=== PATIENT | female | born 1990 | race Caucasian/White ===

== ENCOUNTER 2017-01-22 11:26 | Emergency (ER) | payer SELFPAY ==
[~2017-01-22] VITALS: Ht 149.9 cm; Wt 102.1 kg
[2017-01-22] MEDS ORDERED: MUPI15CR TP (12:52)
[2017-01-22] MEDS ORDERED: SULF1TAB24 PO (12:52)
[2017-01-22] MEDS: LIDOCAINE 2%/EPI 1:100,000 20 ML VIAL. IJ ONE (12:53)
--- NOTE | 2017-01-22 13:04 | PHYS DOC ---
General Chief Complaint: INSECT BITE Stated Complaint: INSECT BITE Time Seen by MD: 12:39 Source: patient Exam Limitations: no limitations Problems: History of Present Illness Initial Comments Patient is a 26-year-old female who comes to the ED complaining of possible insect bite. Patient states that one week ago she noticed a small fall at her right groin consistent with an ingrown hair. Since that time the skin lesion has grown larger turned red and become tender. Patient denies history of MRSA no fever chills sweats or bodyaches no immunocompromised status. She says last night she tried to pop this skin lesion but was successful only in creating a bruised scabbed abrasion at the apex of the lesion. Ocxm-nmx-ikyxxbw medications haven' t been helping and as she was unable to get anything out of the presumed abscess last night she has calm or further evaluation. Tetanus is up-to-date. Patient is afebrile no tachycardia vital signs stable Onset: last week Severity: moderate Pain/Injury Location: right hip Method of Injury: unknown Modifying Factors: worse with jarring, worse with movement, improves with rest Allergies: Coded Allergies: Penicillins (Verified Allergy, Severe, Anaphylaxis, 01/22/17) Past Medical History Medical History: no pertinent history Surgical History: noncontributory Social History Smoker: cigarettes Alcohol: none Drugs: none Review of Systems Constitutional: denies chills, denies fever, denies malaise Respiratory: denies cough, denies shortness of breath Cardiovascular: denies chest pain, denies palpitations Gastrointestinal: denies abdominal pain, denies diarrhea, denies nausea, denies vomiting Musculoskeletal: denies back pain, denies joint swelling, denies neck pain Skin: see HPI Physical Exam General Appearance: no apparent distress, obese HEENT: normal ENT inspection Neck: non-tender, supple Cardiovascular/Respiratory: normal peripheral pulses, no respiratory distress Back: no CVA tenderness, no vertebral tenderness Neurologic/Tendon: normal sensation, normal motor functions, normal tendon functions, responds to pain, no evidence tendon injury Psychiatric: alert, oriented x 3 Skin: warm/dry (the right groin there is a 4 x 5 cm tender red fluctuant abscess with a scabbed lesion at the apex with a half centimeter halo of ecchymosis. The lesion is tender and warm consistent with abscess. There is no drainage from the lesion at this point as it is scabbed.) Orders, Labs, Meds I advised the patient would need to move her from fast track to a regular exam room so we can't perform an I&D of the lesion. As we were talking I received a physician phone call from a physician at to discuss his acceptance of a different patient for transfer. 1302: Before I can get back to even finished a conversation with the patient much less get her moved to a regular exam room ED staff notifies me pt anxious, has to go to work. Refusing I/D, requesting meds and discharge. Patient was signed out by the RN see departure. Departure Time of Disposition: 13:03 Disposition: 01 HOME, SELF-CARE Diagnosis: right leg abscess Condition: GOOD Patient Instructions: Abscess, Care After Additional Instructions: Activity as tolerated. Warm compresses to affected area 4-6 times daily. Yczm-xro-ktwwthy Tylenol or ibuprofen as needed. Prescription: Bactrim DS, Bactroban ointment Follow-up with your doctor in 3-5 days for a recheck. Return to the ED with new or changing symptoms. MARTA ZUNIGA DO Jan 22, 2017 13:04
[2017-01-22 13:10] VITALS: BP 139/73
== END 2017-01-22 13:12 | disposition home or self-care (01) ==
LOC: ER 11:26
DX: L02.415 Cutaneous abscess of right lower limb (principal); F17.210 Nicotine dependence, cigarettes, uncomplicated; Z88.0 Allergy status to penicillin
CPT/HCPCS: 99283

== ENCOUNTER 2018-06-03 09:02 | Emergency (ER) | payer SELFPAY ==
[~2018-06-03] VITALS: Ht 149.9 cm; Wt 111.5 kg
[~2018-06-03 09:02] MED LIST: MUPI15CR TP; SULF1TAB24 PO
[2018-06-03 09:28] VITALS: BP 134/84
[2018-06-03] MEDS ORDERED: KETOROLAC 60 MG/2 ML VIAL. IM ONE (09:45)
--- NOTE | 2018-06-03 10:08 | PHYS DOC ---
Past History Past Medical History: No Pertinent History Past Surgical History: Smoking: Cigarettes Alcohol Use: Occasionally Drug Use: None Adult General Chief Complaint Chief Complaint: BACK PAIN OR INJURY HPI HPI Patient is a 28 year old female who presents with back pain for 1 week. Patient state she has had a constant low back pain for 1 week and for the last couple days has radiation of pain to right posterior thigh and leg as a constant pain that getting worse with movement and activity. Patient denies focal neuro deficit, fever and chills, urinary and bowel incontinence, vaginal bleeding or discharge, urinary symptoms, abdominal pain. Patient states she has had history of chronic back pain but never had radiation of pain to the back of her thigh. Patient rated her pain 9/10 and states she took adxf-oss-kifvzeo pain medication without improvement of her pain. Review of Systems Review of Systems Constitutional: Denies fever or chills [] Eyes: Denies change in visual acuity, redness, or eye pain [] HENT: Denies nasal congestion or sore throat [] Respiratory: Denies cough or shortness of breath [] Cardiovascular: No additional information not addressed in HPI [] GI: Denies abdominal pain, nausea, vomiting, bloody stools or diarrhea [] : Denies dysuria or hematuria [] Musculoskeletal: Reports back pain and extremity pain Integument: Denies rash or skin lesions [] Neurologic: Denies headache, focal weakness or sensory changes [] Endocrine: Denies polyuria or polydipsia [] All other systems were reviewed and found to be within normal limits, except as documented in this note. Current Medications Current Medications Current Medications Medications (Trade) Dose Ordered Sig/[facility] Start Time Stop Time Status Last Admin Dose Admin Ketorolac Tromethamine (Toradol Im) 60 mg 1X ONCE 06/03/18 09:45 06/03/18 09:46 DC 06/03/18 09:51 60 MG Allergies Allergies Allergies Coded Allergies Type Severity Reaction Last Updated Verified Penicillins Allergy Severe Anaphylaxis 01/22/17 Yes iodine Allergy Unknown hives 06/03/18 Yes Physical Exam Physical Exam Constitutional: Well developed, well nourished, mild distress, non-toxic appearance, morbidly obese. [] HENT: Normocephalic, atraumatic. Eyes: PERRLA, EOMI, conjunctiva normal, no discharge. [] Neck: Normal range of motion, no tenderness, supple, no stridor. [] Cardiovascular:Heart rate regular rhythm, no murmur [] Lungs & Thorax: Bilateral breath sounds clear to auscultation [] Abdomen: Bowel sounds normal, soft, no tenderness, no masses, no pulsatile masses. [] Skin: Warm, dry, no erythema, no rash. [] Back: No midline tenderness, no CVA tenderness, right paraspinal muscle spasm. [ ] Extremities: No tenderness, no cyanosis, no clubbing, ROM intact, no edema. [] Neurologic: Alert and oriented X 3, normal motor function, normal sensory function, no focal deficits noted. [] Psychologic: Affect normal, judgement normal, mood normal. [] Current Patient Data Vital Signs Vital Signs Date Time Temp Pulse Resp B/P (MAP) Pulse Ox O2 Delivery O2 Flow Rate FiO2 06/03/18 09:28 97.5 90 22 97 Room Air EKG EKG [] Radiology/Procedures Radiology/Procedures [] Course & Med Decision Making Course & Med Decision Making Pertinent Labs reviewed. (See chart for details) discharge: I've spoken with the patient and/or caregivers. I've explained the patient's condition, diagnosis and treatment plan based on information available to me at this time. I've answered the patient's and/or caregivers questions and addressed any concerns. The patient and/or caregivers have a good understanding the patient's diagnosis, condition and treatment plan as can be expected at this point. Vital signs have been stabilized. The patient's condition is stable for discharge from the emergency department. The patient will pursue further outpatient evaluation with her primary care provider or other designated consulting physician as outlined in the discharge instructions. Patient and/or caregivers are agreeable to this plan of care and follow-up instructions have been explained in detail. The patient and/or caregivers have received these instructions in written format and expressed understanding of these discharge instructions. The patient and her caregivers are aware that if any significant change in condition or worsening of symptoms should prompt him to immediately return to this of the closest emergency department. If an emergent department is not readily available I would encourage him to call 911. Mauro Disclaimer [employer] Disclaimer This electronic medical record was generated, in whole or in part, using a voice recognition dictation system. Departure Departure: Impression: Primary Impression: Sciatic leg pain Additional Impressions: Tobacco abuse Tobacco abuse counseling Morbid obesity with BMI of 45.0-49.9, adult Disposition: 01 HOME, SELF-CARE (at 1026) Condition: IMPROVED Referrals: PCPMALLORY (PCP) Patient Instructions: Sciatica, Smoking Cessation, Tips For Success Additional Instructions: Apply ice on your back Follow-up with your primary care physician in 3-5 days Return to ER if not getting better Scripts Prednisone (PREDNISONE) 50 Mg Tablet 1 TAB PO DAILY for inflammation, #5 TAB Prov: JAMES ANDERSON MD 06/03/18 Naproxen (NAPROSYN) 500 Mg Tablet 500 MG PO BID for pain, #20 TAB Prov: JAMES ANDERSON MD 06/03/18 Cyclobenzaprine Hcl (CYCLOBENZAPRINE HCL) 10 Mg Tablet 1 TAB PO TID for pain, #30 TAB Prov: JAMES ANDERSON MD 06/03/18 Problem Qualifiers JAMES ANDERSON MD Jun 03, 2018 10:08
[2018-06-03 10:14] LABS: BILIRUBIN,URINE NEG (NEG); CLARITY,URINE CLOUDY; COLOR,URINE YELLOW; GLUCOSE,URINE NEG (NEG); NITRITE,URINE NEG (NEG); UROBILINOGEN,URINE 0.2 mg/dL (0.2 mg/dL)
[2018-06-03 10:15] LABS: BACTERIA,URINE FEW /HPF (0-FEW); RBC,URINE OCC /HPF (0-2); SQUAMOUS EPITHELIAL CELL,UR FEW /LPF; WBC,URINE OCC /HPF (0-4)
[2018-06-03] MEDS ORDERED: METH4TAB2 PO (10:28)
[2018-06-03] MEDS ORDERED: CYCL-331 PO (10:28)
[2018-06-03] MEDS ORDERED: NAPR-683 PO (10:28)
[2018-06-03] MEDS ORDERED: PRED50TA PO (10:33)
== END 2018-06-03 10:35 | disposition home or self-care (01) ==
LOC: ER 09:02
DX: M54.41 Lumbago with sciatica, right side (principal); G89.29 Other chronic pain; F17.210 Nicotine dependence, cigarettes, uncomplicated; E66.01 Morbid (severe) obesity due to excess calories; Z68.42 Body mass index [BMI] 45.0-49.9, adult; Z98.890 Other specified postprocedural states; Z71.6 Tobacco abuse counseling; Z88.0 Allergy status to penicillin; Z91.041 Radiographic dye allergy status
CPT/HCPCS: 81001; 87086; 96372; 99283; J1885

== ENCOUNTER 2020-08-03 13:14 | Emergency (ER) | payer SELFPAY ==
[~2020-08-03] VITALS: Ht 149.9 cm; Wt 111.0 kg
[~2020-08-03 13:14] MED LIST changes: +CYCL-331 PO; +METH4TAB2 PO; +NAPR-683 PO; +PRED50TA PO
[2020-08-03 13:44] VITALS: BP 119/91
--- NOTE | 2020-08-03 15:14 | PHYS DOC ---
Past History Past Medical History: No Pertinent History Past Surgical History: Smoking: Cigarettes Alcohol Use: Rarely Drug Use: None General Adult EDM: Chief Complaint: BACK INJURY HPI: HPI: History gained from patient. Patient is a 30-year-old female who presents with chief complaint of left lower back pain status post mechanical fall 2 weeks prior to arrival. States she was about to walk down 5 stairs when she slipped o n some clothes on the landing. States she fell down 2-3 steps on her left lower back. She was able to ambulate and has been relatively comfortable over the past 2 weeks but she states the pain became more severe earlier today. She has tried naproxen at home with minimal relief. Denies hitting her head or LOC. Denies any midline pain. Denies chest pain or shortness of breath. Does not take blood thinners. States pain is aching and constant. States it is nonradiating. Patient denies any urinary retention, stool incontinence, saddle anesthesia, history of IV drug use, or history of cancer. Review of Systems: Review of Systems: Constitutional: Denies fever or chills Eyes: Denies change in visual acuity HENT: Denies nasal congestion or sore throat Respiratory: Denies cough or shortness of breath Cardiovascular: Denies chest pain or edema GI: Denies abdominal pain, nausea, vomiting, bloody stools or diarrhea : Denies dysuria Musculoskeletal: Positive for fall and back pain Integument: Denies rash Neurologic: Denies headache, focal weakness or sensory changes Endocrine: Denies polyuria or polydipsia Lymphatic: Denies swollen glands Psychiatric: Denies depression or anxiety Allergies: Allergies: Allergies Coded Allergies Type Severity Reaction Last Updated Verified Penicillins Allergy Severe Anaphylaxis 01/22/17 Yes iodine Allergy Unknown hives 06/03/18 Yes Physical Exam: PE: C physical Exam Trauma: Primary Survey: Airway: Intact. Speaks in normal voice and phonation. Breathing: Breath sounds are clear and equal bilaterally. Circulation: Regular rhythm, 2+ and symmetric radial, DP and PT pulses. Disability: GCS on arrival was 15. Pupils 3 mm, ERRL Exposure: Complete exposure obtained and described in detail below. Secondary Survey: General: Awake, alert, appropriate, and in no acute distress HENT: Atraumatic. TMs clear bilaterally, no hemotympanum. No periorbital tenderness or deformity. No obvious craniofacial trauma. Midface is stable. No apparent dental or tongue/oropharyngeal injury. No septal hematoma. Neck: C-spine: no midline tenderness. Without step-off, deformity, abrasion, ecchymosis, or other signs of trauma. Paraspinal musculature with no tenderness and/or hypertonicity. Eyes: Pupils 3 mm ERRL, EOMI grossly, no evidence of ocular trauma, conjunctivae normal Respiratory: CTAB without wheezing, rhonchi, or rales. No distress. Chest wall with no tenderness to palpation. No crepitus, ecchymosis, or flail segment present. Cardiovascular: Regular rhythm without murmurs noted. 2+ and symmetric radial, DP and PT pulses. GI: Soft, non-tender, non-distended Musculoskeletal: T-spine: no midline tenderness. Without step-off, deformity, abrasion, ecchymosis, or other signs of trauma. Paraspinal musculature with no tenderness and/or hypertonicity. L-spine: no midline tenderness. Without step-off, deformity, abrasion, ecchymosis, or other signs of trauma. Paraspinal musculature with no tenderness and/or hypertonicity. RUE: Active ROM, no obvious deformity, no gross weakness or sensory deficits, warm & well-perfused LUE: Active ROM, no obvious deformity, no gross weakness or sensory deficits, warm & well-perfused RLE: Active ROM, no obvious deformity, no gross weakness or sensory deficits, warm & well-perfused LLE: Active ROM, no obvious deformity, no gross weakness or sensory deficits, warm & well-perfused Integument: Without abrasions, contusions, or lacerations. Neurologic: GCS on arrival as noted above. No obvious focal motor or sensory deficits on examination. Gait not assessed due to acuity of trauma assessment. Current Patient Data: Vital Signs: Vital Signs Date Time Temp Pulse Resp B/P (MAP) Pulse Ox O2 Delivery O2 Flow Rate FiO2 08/03/20 13:44 98.3 86 16 119/91 (100) 95 Room Air EKG: EKG: [] Radiology/Procedures: Radiology/Procedures: [address] [address] IMAGING REPORT Signed PATIENT: CLAUDIO MENDIETA LACCOUNT: [id number] : 1990 LOCATION: ER AGE: 30 SEX: F EXAM STATUS: REG ER ORD. PHYSICIAN: JESSE WOLF DO REASON: Left lower BP s/p fall PROCEDURE: CT LUMBAR SPINE WO CONTRAST Exam: CT the lumbar spine without contrast INDICATION: Left lower back pain status post fall TECHNIQUE: Sequential axial images through the lumbar spine obtained without IV contrast. Sagittal and coronal reformatted images were reconstructed from the axial data and reviewed. Comparisons: None FINDINGS: Vertebral body heights and alignment are well-maintained. Fracture to the lumbar spine is not identified. No significant spondylotic change lumbar spine. Gallstone noted within the gallbladder. Otherwise, visualized soft tissues are unremarkable. IMPRESSION: 1. Negative CT lumbar spine for acute traumatic injury. 2. Cholelithiasis. Exposure: One or more of the following in the visualized dose reduction techniques were utilized for this examination: 1. Automated exposure control 2. Adjustment of the MA and/or KV according to patient size 3. Use of iterative of reconstructive technique Electronically signed by: Yuli Shields MD (08/03/2020 3:53 PM) [facility] DICTATED AND SIGNED BY: YULI SHIELDS MD DATE: 08/03/20 1547 CC: PCP,NO; JESSE WOLF DO ~MTH0 0 [] Heart Score: Risk Factors: Risk Factors: DM, Current or recent (<one month) smoker, HTN, HLP, family history of CAD, obesity. Risk Scores: Score 0 - 3: 2.5% MACE over next 6 weeks - Discharge Home Score 4 - 6: 20.3% MACE over next 6 weeks - Admit for Clinical Observation Score 7 - 10: 72.7% MACE over next 6 weeks - Early Invasive Strategies Course & Med Decision Making: Course & Med Decision Making Pertinent Labs and Imaging studies reviewed. (See chart for details) [] Patient is an overall well-appearing 30-year-old female who presents with chief complaint of left lower back pain status post mechanical fall 2 weeks ago. Initial vital signs normal. Exam overall reassuring. CT imaging of lumbar spine reveals no acute traumatic abnormality. No red flag signs or symptoms regarding her back discomfort. Denies urinary symptoms. Low suspicion for infectious etiology. Could be soft tissue in nature. I do feel the patient appropriate for discharge home. She was able ambulate without difficulty or assistance in the emergency department. She was encouraged to continue to use naproxen. Muscle relaxants and Lidoderm patch will be prescribed. Instructed to follow-up with her primary care physician in the next week. Return precautions discussed and understood. Stable for discharge home. Mauro Disclaimer: Mauro Disclaimer: This electronic medical record was generated, in whole or in part, using a voice recognition dictation system. Departure Departure: Impression: Primary Impression: Fall Qualified Codes: W19.XXXA - Unspecified fall, initial encounter Additional Impression: Left low back pain Qualified Codes: M54.5 - Low back pain Disposition: 01 DC HOME SELF CARE/HOMELESS Condition: STABLE Referrals: PCP,MALLORY (PCP) Patient Instructions: Back Injury Prevention Additional Instructions: Please follow-up with your primary care physician in the next 2 to 3 days. Scripts Lidocaine (Lidocaine) 1 Each Adh..patch 1 EACH TP DAILY for pain for 5 Days, #5 PATCH 4%. 12 hours on, 12 hours off. Prov: JESSE WOLF DO 08/03/20 Cyclobenzaprine Hcl (CYCLOBENZAPRINE HCL) 10 Mg Tablet 1 TAB PO TID PRN PRN for PAIN, #12 TAB Prov: JESSE WOLF DO 08/03/20 JESSE WOLF DO Aug 03, 2020 15:14
[2020-08-03] MEDS ORDERED: HYDROcodone/APAP 10/325 1 TAB TABLET PO ONE (15:30)
[2020-08-03] MEDS ORDERED: LIDOCAINE (700MG/PATCH) PATCH. TD ONE (15:30)
[2020-08-03] MEDS ORDERED: KETOROLAC 15 MG/ML VIAL. IM ONE (15:30)
--- NOTE | 2020-08-03 15:55 | RAD ---
Exam: CT the lumbar spine without contrast INDICATION: Left lower back pain status post fall TECHNIQUE: Sequential axial images through the lumbar spine obtained without IV contrast. Sagittal an d coronal reformatted images were reconstructed from the axial data and reviewed. Comparisons: None FINDINGS: Vertebral body heights and alignment are well-maintained. Fracture to the lumbar spine is not identified. No significant spondylotic change lumbar spine. Gallstone noted within the gallbladder. Otherwise, visualized soft tissues are unremarkable. IMPRESSION: 1. Negative CT lumbar spine for acute traumatic injury. 2. Cholelithiasis. Exposure: One or more of the following in the visualized dose reduction techniques were utilized for this examination: 1. Automated exposure control 2. Adjustment of the MA and/or KV according to patient size 3. Use of iterative of reconstructive technique Electronically signed by: Yuli Fonseca MD (08/03/2020 3:53 PM) [facility]
[2020-08-03] MEDS ORDERED: CYCL-331 PO (16:08)
[2020-08-03] MEDS ORDERED: LIDO1ADH63 TP (16:08)
== END 2020-08-03 17:03 | disposition home or self-care (01) ==
LOC: ER 13:14
DX: M54.5 Low back pain (principal); F17.210 Nicotine dependence, cigarettes, uncomplicated; Z98.890 Other specified postprocedural states; Z88.0 Allergy status to penicillin; Z88.8 Allergy status to other drugs, medicaments and biological substances; W10.8XXA Fall (on) (from) other stairs and steps, initial encounter; Y93.89 Activity, other specified; Y92.89 Other specified places as the place of occurrence of the external cause; Y99.8 Other external cause status
CPT/HCPCS: 72131; 81025; 96372; 99284; J1885